=== PATIENT | male | born 1960 | race Caucasian/White ===

== ENCOUNTER 2017-04-01 12:57 | Outpatient (CLI) | payer OTHER ==
--- NOTE | 2017-04-01 13:31 | DIAGNOSTIC IMAGING REPORT ---
PROCEDURE: XR THORACIC SPINE 3 VIEWS INDICATION: BACK PAIN,SIATICA LEFT TECHNIQUE: Three views. COMPARISON: None. FINDINGS: Osteoarthritis with scattered osteophytes. No evidence of an acute process or fracture. IMPRESSION: 1. Osteoarthritis thoracic spine.
--- NOTE | 2017-04-01 13:33 | DIAGNOSTIC IMAGING REPORT ---
PROCEDURE: XR LUMBAR SPINE 2 OR 3 VIEWS INDICATION: LEFT SCIATICA TECHNIQUE: Three views. COMPARISON: None. FINDINGS: Osteophytes at L1-2. No evidence of an acute process or fracture. IMPRESSION: 1. 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
== END 2017-04-01 23:00 ==
LOC: XR SRH 12:57
DX: M47.814 Spondylosis without myelopathy or radiculopathy, thoracic region (principal); M47.816 Spondylosis without myelopathy or radiculopathy, lumbar region